=== PATIENT | male | born 1995 | race Caucasian/White ===

== ENCOUNTER 2020-08-15 16:49 | Emergency (ER) | payer OTHER ==
[~2020-08-15] VITALS: Ht 175.3 cm; Wt 68.0 kg
== END 2020-08-15 19:45 | disposition home or self-care (01) ==
LOC: ER 16:49
DX: S90.852A Superficial foreign body, left foot, initial encounter (principal); W56.81XA Bitten by other nonvenomous marine animals, initial encounter; Y93.89 Activity, other specified; Y92.832 Beach as the place of occurrence of the external cause; Y99.8 Other external cause status